=== PATIENT | male | born 1965 | race Caucasian/White ===

== ENCOUNTER → 2017-10-22 | Outpatient (CLI) | payer BC ==
[~2017-10-22] MED LIST: ACYC200C66 PO; ATOR40TA16 PO; AUGM875T3 PO; CHOL5000 PO; CITA20TA4 PO; GEMF600T PO; HYDR-3288 PO; MAGN500T2 PO; MELO15TA20 PO; TRAM50TA PO; VITA500T4 PO
--- NOTE | 2017-10-23 17:51 | EKG ---
Date Performed: 10/22/2017 Time Performed: 11:50:18 PTAGE: 52 years EKG: Sinus rhythm . Inferior T wave changes are nonspecific Borderline ECG PREVIOUS TRACING : 04/28/2005 08.30 DOCTOR: Kashmir Stanley Interpretating Date/Time 10/23/2017 17:40:40
== END ==
LOC: CPRE 11:11
PROVIDERS: ATTEND Orthopaedic Surgery
DX: Z01.810 Encounter for preprocedural cardiovascular examination (principal); M17.11 Unilateral primary osteoarthritis, right knee; M21.061 Valgus deformity, not elsewhere classified, right knee; M79.609 Pain in unspecified limb; R94.31 Abnormal electrocardiogram [ECG] [EKG]
CPT/HCPCS: 93005

== ENCOUNTER 2017-11-06 05:19 | Inpatient (IN) | payer BC ==
[~2017-11-06] VITALS: Ht 182.9 cm; Wt 108.4 kg
[2017-11-06] MEDS ORDERED: CHLORHEXIDINE GLUCONATE 4% SOLN 120 ML BTL TOPICAL SCH (05:45)
[2017-11-06] MEDS ORDERED: SODIUM CHLORID 0.9% 500 ML IV PRN (05:45)
[2017-11-06] MEDS ORDERED: CHLORHEXIDINE GLUCONATE 2 % 1 PACK (2 CLOTHS) TOPICAL PRN (05:45)
[2017-11-06] MEDS ORDERED: ceFAZolin 2 GM PREMIX 50 ML IV SCH (05:45)
[2017-11-06] MEDS ORDERED: METOPROLOL TARTRATE 25 MG TAB PO PRN (05:45)
[2017-11-06] MEDS ORDERED: POVIDONE IODINE 5% (ANTISEPSIS KIT) 4 APPLICATIONS EACH NARE PRN (05:45)
[2017-11-06] MEDS ORDERED: BUPIVACAINE LIPOSOME PF 1.3% 20 ML VIAL ONE (06:00)
[2017-11-06] MEDS: LACTATED RINGER'S 1000 ML IV PRN ×2 (06:00→06:10)
[2017-11-06] MEDS ORDERED: MIDAZOLAM HCL 5 MG/5 ML VIAL ONE (06:00)
[2017-11-06] MEDS ORDERED: PROPOFOL 500 MG/50 ML INJ 50 ML ONE (06:22)
[2017-11-06] MEDS ORDERED: ACETAMINOPHEN 1000 MG/100 ML 100 ML IV ONE (06:22)
[2017-11-06] MEDS ORDERED: FAMOTIDINE 20 MG/2 ML VIAL ONE (06:28)
[2017-11-06] MEDS ORDERED: GENTAMICIN SULFATE 80 MG/2 ML VIAL ONE (06:36)
[2017-11-06] MEDS: GEMFIBROZIL 600 MG TAB PO SCH ×2 (07:00→14:57)
[2017-11-06] MEDS ORDERED: MAGNESIUM HYDROXIDE SUSP 30 ML CUP PO PRN (07:00)
[2017-11-06] MEDS ORDERED: SODIUM CHLORIDE 0.9% IV SCH ×2 (07:00→10:00)
[2017-11-06] MEDS ORDERED: ACETAMINOPHEN/HYDROcodone 325 MG/7.5 MG TAB PO PRN (07:00)
[2017-11-06] MEDS ORDERED: TRANEXAMIC ACID IV SCH ×2 (07:00→10:00)
[2017-11-06] MEDS ORDERED: ONDANSETRON HCL 4 MG/2 ML VIAL IVP PRN (07:00)
[2017-11-06] MEDS ORDERED: EXPAREL PERI-ARTICULAR INJECTION (TOTAL VOL. 100 ML) P-ARTICULR SCH ×2 (07:00)
[2017-11-06] MEDS ORDERED: TRANEXAMIC ACID INJ 0 MG in SODIUM CHLORIDE 0.9% INJ 100 ML IV SCH (07:00)
[2017-11-06] MEDS ORDERED: ZOLPIDEM TARTRATE 5 MG TAB PO PRN (07:00)
[2017-11-06] MEDS ORDERED: KETOROLAC TROMETHAMINE 30 MG/ML (IVP) VIAL IVP SCH (07:00)
[2017-11-06] MEDS ORDERED: MORPHINE SULFATE 4 MG/ML INJ IV PUSH PRN (07:00)
--- NOTE | 2017-11-06 07:00 | HHI.FF ---
Face to Face Verification Diagnosis: (1) Status post total right knee replacement Physical Therapy Gait training Knee: Total knee, Protocol: Right, Gait training, Full weight bearing Right LE Weight Bearing: WB as tolerated Right LE Range of Motion: Active ROM (AROM, AAROM, PROM. ROM goal is 0 to 135 degrees.) Nursing Nursing: Dressing changes (To begin on postop day 7.) Dressing Changes: Daily dressing change (To begin on postop day 7.), Coverderm/ [place] Additional Instructions Remove steristrips on postop day 14. I have seen patient Michele Sylvester on 11/06/17. My clinical findings support the need for the requested home health care services because: Ltd mobility - disease progression Limited ability to care for self High risk of falls I certify that my clinical findings support that this patient is homebound because: Post-op weakness Unsteady gait/balance Unsafe to leave home unassisted Tra Kramer MD (Charles) Nov 06, 2017 07:00
[2017-11-06] MEDS ORDERED: ECASA81 PO (07:03)
[2017-11-06] MEDS: CYANOCOBALAMIN 1,000 MCG TAB PO SCH (09:00)
[2017-11-06] MEDS: ACYCLOVIR 200 MG CAP PO SCH ×2 (09:00→22:29)
[2017-11-06] MEDS: CHOLECALCIFEROL (VIT D3) 5000 UNIT CAP PO SCH (09:00)
[2017-11-06] MEDS: ASPIRIN EC 81 MG TABEC PO SCH ×2 (09:00→22:26)
--- NOTE | 2017-11-06 09:15 | HHI.PR ---
Immediate Post Op Note Procedure Date: Nov 06, 2017 Pre Op Diagnosis: (1) Primary osteoarthritis of right knee Post Op Diagnosis: (1) Primary osteoarthritis of right knee Surgeon: Praveen Kramer M.D. [employer] Pack[employer] Machine Operator(s): KARLY Espino Procedure: Right total knee arthroplasty using David Triathlon prosthesis (uncemented). Findings: There was severe osteoarthritis particularly in the medial compartment. There was also arthritis behind the patella and in the lateral femoral condyle. Complications: None Specimen(s) removed: None Estimated blood loss: 250 mL Anesthesia: Regional Block (adductor canal block), Spinal, Local (with Exparel) Drains: Hemovac (2) IVF Tourniquet time (min at mmHg) None Patient to: PACU Patient Condition: Good Implant/Devices: SEE IMPLANT LOG (if applicable) Date/Time of Procedure: SEE SURGICAL CARE RECORD Tra Kramer MD (Charles) Nov 06, 2017 09:15
--- NOTE | 2017-11-06 09:21 | PD.OP ---
Operative Report Date of Surgery: Nov 06, 2017 Preoperative Diagnosis: (1) Primary osteoarthritis of right knee Postoperative Diagnosis: (1) Primary osteoarthritis of right knee Procedure: Right total knee arthroplasty using [place] Triathlon prosthesis (uncemented) Anesthesia: Spinal with supplemental adductor canal block regional and local with Exparel Surgeon: Praveen Kramer M.D. River Rafting Guide(s): KARLY Espino Operation and Findings: Indications and Findings: This 52-year-old man has had problems with his right knee since 1986. He has had previous treatment with arthroscopic surgery. He has had progressive worsening of his pain and has ambulation tolerance of only mild. He has difficulty with stairs, ladders and standing from sitting. He has got responded to conservative measures including anti-inflammatory agents analgesics, exercises and activity modification. Physical findings showed medial laxity with tenderness particularly in the medial compartment with crepitation on range of motion. X-rays showed severe arthritis with loss of articular cartilage in the medial compartment with osteophytes and eburnation. Operative findings: There was severe osteoarthritis in the medial compartment with loss of articular cartilage to expose subchondral bone, eburnation and osteophytes. The lateral compartment had loss of articular cartilage in portions of the femoral condyle. The patella had significant degenerative changes well. The prosthesis used was a David Triathlon prosthesis. The femur was a size 6, cruciate retaining, uncemented. The tibial baseplate was a size 6 Tritanium with a size 6 x 11 mm, cruciate retaining, X3 polyethylene spacer. The patella was a size 38 mm asymmetric Tritanium backed. The patient was brought to the clean-air operating suite. A spinal anesthetic was administered as well as a regional anesthetic by abductor canal block. The position was supine with a small bolster under the hip on the operative side. A pneumatic tourniquet was applied to the upper thigh. The lower extremity was then prepped with alcohol, Hibiclens and ChloraPrep and draped in the usual manner with the knee draped free. An appropriate timeout procedure was carried out. An incision was made from about 3 fingerbreadths above the superior medial pole of patella down the tibial tubercle on the medial side. The incision was deepened through the subcutaneous tissue to the retinacular structures which were exposed medially and laterally. A medial retinacular incision was then made from the superior middle pole of patella down the tibial tubercle and up into the quadriceps tendon splitting it longitudinally and the medial one third. The patella was reflected. The infrapatellar fat pad was debulked. The anterior cruciate ligament was excised. Medial and lateral meniscectomies were initiated. A fenestration was made in the distal femur for the intramedullary referencing guide. A fenestration was made in the proximal tibia for the intramedullary referencing guide. The distal femoral cutting guide and jig were then assembled for a 5, 8 mm cut. When this was in position, the cutting block was stabilized with pins. The jig was removed. The distal femoral cut was then completed with the oscillating saw. The sizing guide was then positioned in place along Whitesides line and the epicondylar axis and stabilized with pins. The femoral size was then determined with the sizing guide. The 4-in-1 cutting block was then positioned in place. Anterior and posterior cuts were made followed by posterior and anterior chamfer cuts taking care to prevent injury to ligamentous structures. Osteophytes were then trimmed from the distal femur. A bone plug was then placed into the fenestration of the distal femur. The proximal tibia was then exposed. The medial and lateral meniscectomies were completed. The proximal tibial cutting guide was then positioned in place and stabilized with a pin for rotation. The depth of cut was then verified with a stylus referencing from the predetermined side. The cutting block was stabilized with pins. The jig was removed. The depth of cut was then verified and adjusted appropriately with the use of the spacer block. The proximal tibial cut was then made with the oscillating saw taking care to prevent injury to neurovascular and ligamentous structures. Proximal tibial bone was removed. Local anesthetic was administered with Exparel in the posterior capsule. The tibial baseplate trial was then positioned in place. After verifying the appropriate size, the base plate trial was positioned in place along with its spacer. The trial femoral component was then impacted into place. The alignment was checked. The trial tibial baseplate was then pinned in place on the tibia. Attention was directed to the patella. The patella drill guide was positioned in place for the appropriate sized patella. Patellar drilling was then carried out. The trial patella was positioned in place. The knee was taken through a range of motion which was easily 0 extension to 135. The patella trial was removed. The femoral drill holes were made. The femoral trial prosthesis was removed. The tibial spacer was removed. A bone plug was placed into the proximal tibia. The tibial punch was impacted through the proximal tibial punch guide. This was all removed followed by placement of the tibial drill guide. The tibial drill holes were then made. The guide was removed. The cut ends of bone were then cleaned with pulse lavage. The tibial baseplate was then impacted into place and seated appropriately. The spacer was inserted. The the femoral component was then impacted into place and seated appropriately. The patella component was then seated with the patellar vice and tightened appropriately. The knee was taken through a range of motion which was comparable to the previous range of motion with excellent stability in flexion and extension and appropriate patellofemoral tracking. The remainder of the Exparel was then injected throughout the knee as a local anesthetic. Drains were brought out the superior lateral aspect of the suprapatellar pouch. Wound closure then commenced using 0 Vicryl interrupted [id number] sutures for the capsular and fascial structures, 2-0 Vicryl interrupted simple sutures with buried knots for the subcutaneous tissues and 4- 0 Monocryl, tenuous subcuticular closure for the skin. The wound was then dressed with Steri-Strips followed by Optifoam silver impregnated dressing. Sterile soft roll with a cooling pad and Tam bandage from the base of the toes to mid thigh were then applied. Patient was then transferred from the operating room to the recovery room in satisfactory condition having tolerated procedure well. Counts are correct. Specimens: None. Estimated blood loss: 250 mL Tra Kramer MD (Charles) Nov 06, 2017 09:21
[2017-11-06] MEDS ORDERED: DO NOT ADM ANY ANTICOAGULANT DRUGS PRN (09:34)
[2017-11-06] MEDS ORDERED: HYDR-3580 PO (09:39)
[2017-11-06] MEDS ORDERED: *MEPERIDINE 25 MG INJ VIAL PERIprocedural Use ONLY ONE (10:20)
--- NOTE | 2017-11-06 10:55 | RADRPT ---
EXAM DATE/TIME: 11/06/2017 09:53 [facility] COMPARISON: No previous studies available for comparison. INDICATIONS : Post-op right knee. MEDICAL HISTORY : None. SURGICAL HISTORY : None. ENCOUNTER: Initial ACUITY: 1 day PAIN SCORE: 0/10 LOCATION: Right Knee. FINDINGS: The patient is status post right knee replacement with prosthesis in good position. No acute fracture or dislocation is noted. CONCLUSION: Status post right knee replacement with prosthesis in good position. No acute fracture or dislocation . Steven Marinelli MD on November 06, 2017 at 10:52 Board Certified Radiologist. This report was verified electronically.
[2017-11-06] MEDS ORDERED: *morphine SULFATE 10 MG/ML PERIprocedure ONLY ONE (11:19)
[2017-11-06] MEDS: LACTATED RINGER'S 1000 ML INJ 1,000 ML IV SCH (11:57)
[2017-11-06] MEDS ORDERED: Post-op Orders (for Pharmacy) XX ONE (12:00)
[2017-11-06] MEDS ORDERED: DEXAMETHASONE SOD PHOS 4 MG/ML VIAL IV ONE ×2 (12:00)
[2017-11-06] MEDS ORDERED: ONDANSETRON HCL 4 MG/2 ML VIAL IV ONE ×2 (12:00)
[2017-11-06] MEDS ORDERED: LACTATED RINGER'S 1000 ML INJ 1,000 ML IV ONE ×2 (12:00)
[2017-11-06] MEDS ORDERED: PROPOFOL 200 MG/20 ML AMP IV ONE ×2 (12:00)
[2017-11-06] MEDS: CITALOPRAM HYDROBROMIDE 20 MG TAB PO SCH (12:17)
[2017-11-06 13:10] VITALS: BP 96/60; PULSE 70; RESP 18; TEMP 96.7; O2SAT 93
[2017-11-06 16:00] VITALS: BP 92/64; PULSE 78; RESP 18; TEMP 96.6; O2SAT 94
[2017-11-06] MEDS: MAGNESIUM OXIDE 400 MG TAB PO SCH (17:44)
[2017-11-06] MEDS: CELECOXIB 200 MG CAP PO SCH (17:44)
[2017-11-06] MEDS: ACETAMINOPHEN/HYDROcodone 325 MG/7.5 MG TAB PO PRN ×2 (17:46→22:27)
[2017-11-06 20:15] VITALS: BP 113/70; PULSE 82; RESP 18; TEMP 98; O2SAT 93
[2017-11-06] MEDS ORDERED: ATORVASTATIN 40 MG TAB PO SCH (21:00)
[2017-11-07] MEDS: LACTATED RINGER'S 1000 ML INJ 1,000 ML IV SCH (00:15)
[2017-11-07 00:30] VITALS: BP 103/60; PULSE 66; RESP 17; TEMP 96.8; O2SAT 92
[2017-11-07 04:25] VITALS: BP 129/78; PULSE 69; RESP 17; TEMP 96.4; O2SAT 95
[2017-11-07] MEDS: GEMFIBROZIL 600 MG TAB PO SCH (05:23)
[2017-11-07] MEDS: ACETAMINOPHEN/HYDROcodone 325 MG/7.5 MG TAB PO PRN ×3 (05:23→12:54)
[2017-11-07] MEDS: CELECOXIB 200 MG CAP PO SCH (05:23)
[2017-11-07 05:37] LABS: HEMATOCRIT 34.4 % (39.0-51.0); HEMOGLOBIN 11.8 GM/DL (13.0-17.0)
[2017-11-07] MEDS ORDERED: GENTAMICIN SULFATE 80 MG/2 ML VIAL ONE (05:59)
--- NOTE | 2017-11-07 07:49 | PD.ORT.PN ---
Subjective Post Op Day #: 1 Subjective Remarks He is doing well. He indicates that his knee was "sore" yesterday but is better today. He does not think that the block was effective but his local was helping. He has been up and out of bed walking as tolerated. He is ready to go home. Range of Motion 0 extension to 100 of flexion Distance Walked 230 feet with PT Objective Vitals Vital Signs Date Time Temp Pulse Resp B/P (MAP) Pulse Ox O2 Delivery O2 Flow Rate FiO2 11/07/17 04:25 96.4 69 17 129/78 (95) 95 11/07/17 00:30 96.8 66 17 103/60 (74) 92 11/06/17 20:15 98.0 82 18 113/70 (84) 93 11/06/17 16:00 96.6 78 18 92/64 (73) 94 11/06/17 13:10 96.7 70 18 96/60 (72) 93 11/06/17 12:42 97.6 60 17 117/68 (84) 95 Nasal Cannula 2 11/06/17 12:00 62 19 116/71 (86) 98 Nasal Cannula 2 11/06/17 11:00 65 15 114/69 (84) 98 Nasal Cannula 2 11/06/17 10:30 66 18 103/66 (78) 100 Nasal Cannula 2 11/06/17 10:15 62 20 102/65 (77) 98 Nasal Cannula 2 11/06/17 10:00 69 15 102/67 (79) 99 Nasal Cannula 2 11/06/17 09:45 70 13 107/62 (77) 98 Nasal Cannula 2 11/06/17 09:36 97.8 73 15 107/65 (79) 100 Simple Mask 6 I/O 11/06/17 11/06/17 11/06/17 11/07/17 11/07/17 11/07/17 07:00 15:00 23:00 07:00 15:00 23:00 Intake Total 1785 ml 580 ml 1120 ml Output Total 835 ml 1100 ml 1000 ml Balance 950 ml -520 ml 120 ml Intake Oral 495 ml 480 ml 1020 ml IV Total 190 ml 100 ml 100 ml Other 1100 ml Output Urine Total 400 ml 700 ml 850 ml Drainage Total 185 ml 400 ml 150 ml Estimated Blood Loss 250 ml # Voids 1 1 # Bowel Movements 0 0 Result Diagram: 11/07/17 0449 Imaging The knee x-rays look good. Last 72 hours Impressions Knee X-Ray 11/06/17 0649 Signed Impressions: Service Date/Time: Monday, November 06, 2017 09:53 - CONCLUSION: Status post right knee replacement with prosthesis in good position. No acute fracture or dislocation. Steven Marinelli MD Objective Remarks He is initially observed ambulating with a walker in the jeffries. Subsequently, he was seen sitting out of bed in a chair. He is able to stand easily to get to the walker and is able to easily sit from a standing position. His neurovascular status is intact. The dressing is dry and intact. Assessment & Plan Ortho Post Op Day #: 1 Problem List: (1) Primary osteoarthritis of right knee ICD Codes: M17.11 - Unilateral primary osteoarthritis, right knee Status: Resolved (2) Status post total right knee replacement ICD Codes: Z96.651 - Presence of right artificial knee joint Plan: Continue postop care and PT. Assessment and Plan Condition: Good. Orthopedically stable. DVT prophylaxis: TEDs, aspirin, sequentials. Discharge plans: Home with home health care. An appointment was scheduled through the office. Prescriptions: [place] 7.5/325. His findings are explained. Tra Kramer MD (Charles) Nov 07, 2017 07:49
[2017-11-07 08:00] VITALS: BP 109/59; PULSE 86; RESP 17; TEMP 96.9; O2SAT 95
--- NOTE | 2017-11-07 08:11 | HHI.DS ---
Discharge Summary Admission Date Nov 06, 2017 at 05:19 Discharge Date: Nov 07, 2017 Admitting Diagnosis Primary osteoarthritis, right knee. Diagnosis: (1) Primary osteoarthritis of right knee Diagnosis: Principal ICD Codes: M17.11 - Unilateral primary osteoarthritis, right knee Status: Resolved (2) Status post total right knee replacement Diagnosis: Principal ICD Codes: Z96.651 - Presence of right artificial knee joint Procedures Right total knee arthroplasty with [place] Triathlon prosthesis (uncemented) on 11/07/2017 Brief History This is a 52 year old male patient has had long-standing pain in his right knee secondary to osteoarthritis. This has progressively worsened to limit his ambulation tolerance. He had degenerative varum with medial laxity and medial tenderness preoperatively. His x-rays prior to admission showed loss of articular cartilage to bone on bone with eburnation and osteophytes. CBC/BMP: 11/07/17 0449 Significant Findings Laboratory Tests Test 11/07/17 04:49 Hemoglobin 11.8 GM/DL (13.0-17.0) Hematocrit 34.4 % (39.0-51.0) PE at Discharge He is initially observed ambulating with a walker in the jeffries. Subsequently, he was seen sitting out of bed in a chair. He is able to stand easily to get to the walker and is able to easily sit from a standing position. His neurovascular status is intact. The dressing is dry and intact. Hospital Course The patient was admitted as noted above. The above noted operative procedure was carried out that day. Preoperatively prophylactic antibiotics were administered Ancef according to protocol. These were continued postoperatively. The patient also received tranexamic acid to help with hemostasis according to protocol. In the postanesthesia care unit a continuous passive motion device was initiated. Also initiated were mechanical methods of DVT prophylaxis in the form of NANCY stockings and sequentials. Physical therapy was initiated on the day of surgery. He was walking 230 feet with the therapist and also had a range of motion from 0 extension to 100 of flexion. On postoperative day #1 physical therapy continued. The use of the continuous passive motion device continued. DVT prophylaxis with aspirin 81 mg twice a day was initiated at this time. The patient continued physical therapy throughout the hospitalization. The distance walked and range of motion improved throughout the hospitalization. The patient was discharged on postoperative day 1 with the disposition being to home with home health care. An appointment for follow-up was made prior to admission. Pt Condition on Discharge: Good Discharge Disposition: Disch w/ Home Health Serv Discharge Instructions Diet Instructions: As Tolerated, No Restrictions Activities You Can Perform: Full Weight Bearing, Shower Only-No Bath Activities to Avoid: Lifting/Bending, Strenuous Activity, Bathing, Driving Follow up Referrals: Orthopedics with Tar Kramer MD (Charles) New Medications: Aspirin DR (Aspirin DR) 81 Mg Tabdr 81 MG PO BID for Prevent Blood Clot for 30 Days, #60 TAB Hydrocodone/Acetaminophen (Hydrocodone-Acetamin 7.5-325) 7.5 Mg-325 Mg Tablet 1 TAB PO Q4H PRN for PAIN SCALE 1 TO 10, #30 TAB Continued Medications: Acyclovir (Acyclovir) 200 Mg Cap 200 MG PO BID for Mgmt Viral Infection, CAP 0 Refills Amoxicillin-Clavulanate (Augmentin) 875-125 Mg Tab 1 TAB PO BID for 10 days for jaw swelling, TAB 0 Refills Atorvastatin (Atorvastatin) 40 Mg Tab 40 MG PO HS for Cholesterol Management, #30 TAB 0 Refills Cholecalciferol (Vitamin D3) 5,000 Unit Cap 5000 UNITS PO DAILY for Nutritional Supplement, #30 CAP 0 Refills Citalopram (Citalopram) 20 Mg Tab 20 MG PO DAILY for Control Depression, #30 TAB 0 Refills Cyanocobalamin (Vitamin B-12) 500 Mcg Tab 1500 MCG PO DAILY for Nutritional Supplement, #1 BOTTLE 0 Refills Gemfibrozil (Gemfibrozil) 600 Mg Tab 600 MG PO BIDAC, #60 TAB 0 Refills Take 30 minutes prior to breakfast and dinner. Hydrocodone-Acetaminophen ([place]) 7.5-325 mg Tab 1 TAB PO Q6H PRN for PAIN, TAB 0 Refills Magnesium Oxide (Magnesium Oxide) 500 Mg Tab 500 MG PO DAILY, TAB 0 Refills Meloxicam (Meloxicam) 15 Mg Tab 15 MG PO DAILY for Arthritis Pain, #30 TAB 0 Refills Tramadol (Tramadol) 50 Mg Tab 50 MG PO Q8H PRN for PAIN, TAB 0 Refills Tra Kramer MD (Charles) Nov 07, 2017 08:11
[2017-11-07 08:33] VITALS: O2SAT 97
[2017-11-07] MEDS: CITALOPRAM HYDROBROMIDE 20 MG TAB PO SCH (09:24)
[2017-11-07] MEDS: CHOLECALCIFEROL (VIT D3) 5000 UNIT CAP PO SCH (09:24)
[2017-11-07] MEDS: ASPIRIN EC 81 MG TABEC PO SCH (09:25)
[2017-11-07] MEDS: CYANOCOBALAMIN 1,000 MCG TAB PO SCH (09:25)
[2017-11-07] MEDS: MAGNESIUM OXIDE 400 MG TAB PO SCH (11:12)
[2017-11-07 11:44] VITALS: BP 114/76; PULSE 78; RESP 18; TEMP 96; O2SAT 96
[2017-11-07] MEDS ORDERED: DOCUSATE SODIUM 100 MG CAP PO SCH (21:00)
== END 2017-11-07 14:09 | disposition home health service (06) | DRG 470 ==
LOC: HSDI 05:19 → N06A 12:58
PROVIDERS: ADMIT Orthopaedic Surgery; ATTEND Orthopaedic Surgery
PROC: 3E0T3BZ Introduction of Anesthetic Agent into Peripheral Nerves and Plexi, Percutaneous Approach (ICD-10-PCS; 2017-11-06)
PROC: 0SRC0JA Replacement of Right Knee Joint with Synthetic Substitute, Uncemented, Open Approach (ICD-10-PCS; principal; 2017-11-06 06:51)
DX: M17.11 Unilateral primary osteoarthritis, right knee (principal); F32.9 Major depressive disorder, single episode, unspecified; E78.5 Hyperlipidemia, unspecified; F41.9 Anxiety disorder, unspecified; Z87.891 Personal history of nicotine dependence
CPT/HCPCS: 73560; 85014; 85018; 86850; 86900; 86901; 94150; C1776; C9290; J0131; J0690; J1100; J1580; J2175; J2250; J2270; J2405; J3010; J7120